=== PATIENT | female | born 1955 | race Caucasian/White ===

== ENCOUNTER → 2023-02-16 10:11 | Outpatient (BNVA) | payer MEDICARE, MEDICAID, SELFPAY | PROVIDERS: Referring Provider Registered Nurse; Visit Provider Internal Medicine Cardiovascular Disease | DX: I10 Essential (primary) hypertension (principal); E66.9 Obesity, unspecified; Z68.35 Body mass index [BMI] 35.0-35.9, adult; R53.83 Other fatigue | CPT/HCPCS: 99203 ==